=== PATIENT | female | born 1955 | race Native Hawaiian/Other Pacific Islander ===

== ENCOUNTER 2018-01-25 17:00 | Inpatient (IN) | payer OTHER ==
[2018-01-25] VITALS (11 sets, daily range): BP systolic 109–144; BP diastolic 64–89; TEMP 97.5–98.1; Ht 162.6 cm; Wt 44.7 kg
[~2018-01-25] VITALS: Ht 162.6 cm; Wt 44.7 kg
[~2018-01-25 17:00] MED LIST: ALLERGY10 MG PO; AMLODIPINE BESYLATE PO; ASPI-93 PO; AZIT250T3 PO; B121000 MCG PO; BENADRYL ALLERG25 MG PO; BUSP5TAB2 PO; CALCIUM CARB500 MG PO; CARV12.5 PO; CEFT1INJ27 IM; CLON0.1T16 PO; DIPH50IN IM; DIVA250T PO; DONE5TAB PO; ESCI10TA PO; FLUTICASONE50 MCG NAS; HALO5INJ3 IM; HYDRALAZINE50 MG PO; LIPITOR40 MG PO; MEMA5TAB2 PO; METH125I IM; NAMZARIC 28-101 CAP PO; ONDA4TAB3 PO; PAROXETINE30 MG PO; POTASSIUM CHLO20 ME1 PO; PROAIR HFA INH; QUETIAPINE25 MG PO; REMERON 15MG TAB PO; RISP0.25 PO; SODI650T PO; TIZA4TAB5 PO; TRAM50TA PO; [UNRECOGNIZED DRUG - OTHER] PO
[2018-01-26] VITALS (23 sets, daily range): BP systolic 117–158; BP diastolic 66–98; TEMP 98–99.1
[2018-01-26 05:07] LABS: PLATELET COUNT 324 K/uL (152-353)
[2018-01-26] MEDS ORDERED: PANTOPRAZOLE 40MG TA PO (18:38)
[2018-01-27] VITALS (20 sets, daily range): BP systolic 107–155; BP diastolic 66–102; TEMP 97.5–99.3
[2018-01-27 05:11] LABS: PLATELET COUNT 300 K/uL (152-353)
[2018-01-27 05:33] LABS: POTASSIUM 3.7 mmol/L (3.6-5.2)
[2018-01-28] VITALS (8 sets, daily range): BP systolic 122–162; BP diastolic 74–103; TEMP 97.6–97.9
[2018-01-28 11:48] LABS: PLATELET COUNT 244 K/uL (152-353)
[2018-01-28 12:02] LABS: POTASSIUM 3.5 mmol/L (3.6-5.2)
[2018-01-28] MEDS ORDERED: PRED20TA27 PO (19:15)
== END 2018-01-28 15:25 | disposition other institution (70) | DRG 190 ==
LOC: ICU 17:00
PROVIDERS: ADMIT Psychiatry & Neurology Psychiatry
PROC: 30233N1 Transfusion of Nonautologous Red Blood Cells into Peripheral Vein, Percutaneous Approach (ICD-10-PCS; principal; 2018-01-27)
DX: J44.0 Chronic obstructive pulmonary disease with (acute) lower respiratory infection (principal); J18.8 Other pneumonia, unspecified organism; J44.1 Chronic obstructive pulmonary disease with (acute) exacerbation; D64.9 Anemia, unspecified; I12.9 Hypertensive chronic kidney disease with stage 1 through stage 4 chronic kidney disease, or unspecified chronic kidney disease; N18.4 Chronic kidney disease, stage 4 (severe); F33.3 Major depressive disorder, recurrent, severe with psychotic symptoms; Z99.81 Dependence on supplemental oxygen; R06.03 Acute respiratory distress
CPT/HCPCS: 36415; 80048; 80053; 80200; 83735; 85014; 85018; 85027; 86850; 86900; 86901; 86922; 94640; 94664; 94760; J1630; J1815; J1956; J2920; J2930; J3260; P9016